=== PATIENT | male | born 1980 | race Caucasian/White ===

== ENCOUNTER 2018-01-12 11:45 | Observation (INO) | payer SELFPAY ==
[~2018-01-12] VITALS: Ht 175.3 cm; Wt 80.3 kg
[2018-01-12 12:21] LABS: HEMATOCRIT 42.9 % (42.0-52.0); HEMOGLOBIN 14.2 g/dl (13.5-18.0); MEAN CELL VOLUME 82 fl (80.0-100.0); MEAN CORPUSCULAR HEMOGLOBIN 27 pg (27.0-31.0); MEAN CORPUSCULAR HGB CONC 33 g/dl (33.0-37.0); MEAN PLATELET VOLUME 9.6 fl (7.4-10.4); PLATELET COUNT 323 K/mm3 (130-400); RED BLOOD COUNT 5.25 M/mm3 (4.20-5.60); REDCELL DISTRIBUTION WIDTH-CV 13.5 % (11.5-14.5)
[2018-01-12 12:33] LABS: BAND 13 % (0-10); EOSINOPHIL 1 % (0-4); LYMPHOCYTE 4 % (20.0-51.0); METAMYELOCYTE 1 % (0-0); NEUTROPHILS 79 % (42.0-75.2); PLATELET ESTIMATE NORMAL (NORMAL)
[2018-01-12 12:36] LABS: INR 1.1 (0.8-3.0); PROTHROMBIN TIME 12.8 SECONDS (9.7-12.8)
[2018-01-12 12:39] LABS: PARTIAL THROMBOPLASTIN TIME 31.8 SECONDS (26.0-37.0)
[2018-01-12 16:00] LABS: BILIRUBIN,TOTAL 0.5 mg/dL (0.0-1.0); CALCIUM 8.4 mg/dL (8.4-10.2); CREATININE, serum 0.78 mg/dL (0.66-1.25); POTASSIUM 3.8 mmol/L (3.4-5.0); TOTAL PROTEIN 7.1 gm/dL (6.4-8.2)
[2018-01-12 16:35] VITALS: BP 129/89; PULSE 101; TEMP 97.4
[2018-01-12 20:09] LABS: COLLECTION METHOD CLEAN CATCH
[2018-01-12 20:19] LABS: MUCOUS Present /lpf; PH 6 (5-8); SQUAMOUS EPITHELIAL None Seen /hpf; URINE APPEARANCE Clear; URINE BACTERIA None Seen /hpf; URINE BILIRUBIN Negative (NEGATIVE); URINE BLOOD Negative (NEGATIVE); URINE COLOR Yellow; URINE GLUCOSE Negative (NEGATIVE); URINE KETONE Negative (NEGATIVE); URINE LEUKOCYTE ESTERASE Negative (NEGATIVE); URINE NITRATE Negative (NEGATIVE); URINE PROTEIN(semi-quant) Negative (NEGATIVE); URINE RBC 0-2 /hpf; URINE UROBILINOGEN Negative (NEGATIVE)
[2018-01-12 20:26] LABS: TRICYCLIC ANTIDEPRESS URINE NEGATIVE
[2018-01-13] VITALS (7 sets, daily range): BP systolic 126–150; BP diastolic 80–98; PULSE 91–109; TEMP 97.8–98.6
[2018-01-13 07:19] LABS: HEMATOCRIT 38.2 % (42.0-52.0); HEMOGLOBIN 12.6 g/dl (13.5-18.0); MEAN CELL VOLUME 82 fl (80.0-100.0); MEAN CORPUSCULAR HEMOGLOBIN 27 pg (27.0-31.0); MEAN CORPUSCULAR HGB CONC 33 g/dl (33.0-37.0); MEAN PLATELET VOLUME 9.9 fl (7.4-10.4); PLATELET COUNT 288 K/mm3 (130-400); RED BLOOD COUNT 4.67 M/mm3 (4.20-5.60); REDCELL DISTRIBUTION WIDTH-CV 13.9 % (11.5-14.5)
[2018-01-13 07:34] LABS: CALCIUM 8.4 mg/dL (8.4-10.2); CREATININE, serum 0.86 mg/dL (0.66-1.25); MAGNESIUM 1.8 mg/dL (1.6-2.3); POTASSIUM 3.4 mmol/L (3.4-5.0)
[2018-01-13 08:00] LABS: BAND 3 % (0-10); HYPOCHROMIA 1+; LYMPHOCYTE 24 % (20.0-51.0); NEUTROPHILS 67 % (42.0-75.2); PLATELET ESTIMATE NORMAL (NORMAL)
[2018-01-14 00:44] VITALS: BP 126/44; PULSE 100; TEMP 98.4
[2018-01-14 04:51] VITALS: BP 149/99; PULSE 101; TEMP 98.2
[2018-01-14 07:46] LABS: BASO # 0.1 (0.0-0.2); BASO % 0.6 % (0.0-2.0); EOS # 0.5 (0.0-0.7); EOS % 3.2 % (0-4.0); GRAN # 9.7 (1.4-6.5); GRAN % 68.7 % (42.2-75.2); HEMATOCRIT 43.1 % (42.0-52.0); HEMOGLOBIN 14.2 g/dl (13.5-18.0); LYMPH # 2.6 (1.2-3.4); LYMPH % 18.5 % (20.0-51.0); MEAN CELL VOLUME 81 fl (80.0-100.0); MEAN CORPUSCULAR HEMOGLOBIN 27 pg (27.0-31.0); MEAN CORPUSCULAR HGB CONC 33 g/dl (33.0-37.0); MEAN PLATELET VOLUME 10.1 fl (7.4-10.4); MONO # 1.2 (0.1-0.6); MONO % 8.6 % (1.7-9.3); PLATELET COUNT 317 K/mm3 (130-400); REDCELL DISTRIBUTION WIDTH-CV 13.8 % (11.5-14.5)
[2018-01-14 07:57] LABS: CALCIUM 8.9 mg/dL (8.4-10.2); CREATININE, serum 0.94 mg/dL (0.66-1.25); MAGNESIUM 1.9 mg/dL (1.6-2.3); PHOSPHOROUS 3.8 mg/dL (2.5-4.5); POTASSIUM 3.6 mmol/L (3.4-5.0)
[2018-01-14 08:51] VITALS: BP 129/93; PULSE 86; TEMP 98.3
[2018-01-14 11:47] VITALS: BP 133/96; PULSE 106; TEMP 98
[2018-01-14 16:29] VITALS: BP 124/94; PULSE 92; TEMP 97.3
[2018-01-14] MEDS ORDERED: COREG12.5 MG PO (18:37)
[2018-01-14] MEDS ORDERED: ZESTRIL 5MG5 MG PO (18:38)
[2018-01-14] MEDS ORDERED: LASIX 40MG TABL40 MG PO (18:38)
[2018-01-14] MEDS ORDERED: ALDACTONE50 MG PO (18:38)
== END 2018-01-14 20:28 | disposition home or self-care (01) ==
LOC: COL.ER 11:45 → MEDICAL 13:57
PROVIDERS: Family Medicine; Internal Medicine; Nurse Practitioner Family
DX: I42.9 Cardiomyopathy, unspecified (principal); F32.9 Major depressive disorder, single episode, unspecified; I10 Essential (primary) hypertension; I08.1 Rheumatic disorders of both mitral and tricuspid valves; Z87.891 Personal history of nicotine dependence; Z87.442 Personal history of urinary calculi; Z83.3 Family history of diabetes mellitus; Z82.49 Family history of ischemic heart disease and other diseases of the circulatory system
CPT/HCPCS: 99222-AI; 99232-AI; 99239; J0456; J1650; J1940; J7030; J7040; J7050; Q9967

== ENCOUNTER 2018-05-08 10:38 | Emergency (ER) | payer SELFPAY ==
[~2018-05-08] VITALS: Ht 175.3 cm; Wt 80.1 kg
[~2018-05-08 10:38] MED LIST changes: -DOXYCYCLINE 10100 MG PO
[2018-05-08 10:40] VITALS: TEMP 98.4
[2018-05-08] MEDS ORDERED: DOXYCYCLINE 10100 MG PO (11:03)
[2018-05-08 11:46] VITALS: BP 135/115; PULSE 103
== END 2018-05-08 11:54 | disposition home or self-care (01) ==
LOC: COL.ER 10:38
DX: S90.562A Insect bite (nonvenomous), left ankle, initial encounter (principal); F32.9 Major depressive disorder, single episode, unspecified; I42.9 Cardiomyopathy, unspecified; F12.90 Cannabis use, unspecified, uncomplicated; Z90.89 Acquired absence of other organs; Z23 Encounter for immunization; W57.XXXA Bitten or stung by nonvenomous insect and other nonvenomous arthropods, initial encounter

== ENCOUNTER → 2018-05-08 | Outpatient (CLI) | payer OTHER ==
[~2018-05-08] MED LIST: ALDACTONE50 MG PO; COREG12.5 MG PO; DOXYCYCLINE 10100 MG PO; LASIX 40MG TABL40 MG PO; ZESTRIL 5MG5 MG PO
== END ==
LOC: COL.RAD 10:02
DX: Z02.71 Encounter for disability determination (principal)

== ENCOUNTER 2018-09-29 21:39 | Observation (INO) | payer SELFPAY ==
[~2018-09-29] VITALS: Ht 177.8 cm; Wt 80.0 kg
[~2018-09-29 21:39] MED LIST changes: +DOXYCYCLINE 10100 MG PO
[2018-09-29 22:05] LABS: BASO # 0.1 (0.0-0.2); BASO % 0.4 % (0.0-2.0); EOS # 0.1 (0.0-0.7); EOS % 0.9 % (0-4.0); GRAN # 11.5 (1.4-6.5); HEMATOCRIT 41.7 % (42.0-52.0); HEMOGLOBIN 13.8 g/dl (13.5-18.0); LYMPH # 2.3 (1.2-3.4); MEAN CELL VOLUME 84 fl (80.0-100.0); MEAN CORPUSCULAR HEMOGLOBIN 28 pg (27.0-31.0); MEAN CORPUSCULAR HGB CONC 33 g/dl (33.0-37.0); MONO # 1.4 (0.1-0.6); MONO % 9.3 % (1.7-9.3); PLATELET COUNT 292 K/mm3 (130-400); RED BLOOD COUNT 4.99 M/mm3 (4.20-5.60); REDCELL DISTRIBUTION WIDTH-CV 13.8 % (11.5-14.5)
[2018-09-29 22:15] LABS: ALANINE AMINOTRANSFERASE 36 U/L (21-72); ALBUMIN 3.9 gm/dL (3.5-5.0); ALKALINE PHOSPHATASE 66 U/L (50-136); ANION GAP 7 mmol/L (7-16); AST,SGOT 16 U/L (15-37); BILIRUBIN,TOTAL 0.5 mg/dL (0.0-1.0); BLOOD UREA NITROGEN 18 mg/dL (9-20); C-REACTIVE PROTEIN 3.1 mg/dL (0.0-0.9); CALCIUM 9.1 mg/dL (8.4-10.2); CARBON DIOXIDE 30 mmol/L (22-30); CHLORIDE 103 mmol/L (98-107); CREATININE, serum 1.08 mg/dL (0.66-1.25); GLUCOSE 108 mg/dL (74-106); POTASSIUM 3.4 mmol/L (3.4-5.0); SODIUM 140 mmol/L (137-145); TOTAL PROTEIN 6.8 gm/dL (6.4-8.2)
[2018-09-29 22:16] LABS: ALCOHOL(ethanol),MEDICAL < 10 mg/dL
[2018-09-29 22:25] LABS: TROPONIN-I 0.033 ng/mL (0.000-0.034)
[2018-09-30] VITALS (7 sets, daily range): BP systolic 96–142; BP diastolic 61–103; PULSE 98–113; TEMP 97.8–98.3
[2018-09-30 00:35] LABS: COLLECTION METHOD CLEAN CATCH
[2018-09-30 00:45] LABS: MUCOUS Present /lpf; PH 6 (5-8); SQUAMOUS EPITHELIAL None Seen /hpf; URINE APPEARANCE Clear; URINE BACTERIA None Seen /hpf; URINE BILIRUBIN Negative (NEGATIVE); URINE BLOOD Negative (NEGATIVE); URINE COLOR Yellow; URINE GLUCOSE Negative (NEGATIVE); URINE KETONE Negative (NEGATIVE); URINE LEUKOCYTE ESTERASE Negative (NEGATIVE); URINE NITRATE Negative (NEGATIVE); URINE PROTEIN(semi-quant) Negative (NEGATIVE); URINE RBC 0-2 /hpf; URINE UROBILINOGEN Negative (NEGATIVE)
[2018-09-30 00:50] LABS: TRICYCLIC ANTIDEPRESS URINE NEGATIVE
[2018-09-30 04:06] LABS: HEMATOCRIT 42.1 % (42.0-52.0); HEMOGLOBIN 14.1 g/dl (13.5-18.0); MEAN CELL VOLUME 82 fl (80.0-100.0); MEAN CORPUSCULAR HEMOGLOBIN 28 pg (27.0-31.0); MEAN CORPUSCULAR HGB CONC 34 g/dl (33.0-37.0); MEAN PLATELET VOLUME 9.9 fl (7.4-10.4); PLATELET COUNT 271 K/mm3 (130-400); RED BLOOD COUNT 5.12 M/mm3 (4.20-5.60); REDCELL DISTRIBUTION WIDTH-CV 13.7 % (11.5-14.5)
[2018-09-30 04:28] LABS: CALCIUM 8.7 mg/dL (8.4-10.2); CREATININE, serum 0.97 mg/dL (0.66-1.25); POTASSIUM 3.1 mmol/L (3.4-5.0)
[2018-09-30 04:39] LABS: TROPONIN-I 6 HR POST INITIAL 0.027 ng/mL (0.000-0.034)
[2018-09-30 04:52] LABS: BAND 2 % (0-10); EOSINOPHIL 1 % (0-4); LYMPHOCYTE 11 % (20.0-51.0); NEUTROPHILS 75 % (42.0-75.2)
[2018-09-30 04:53] LABS: PLATELET ESTIMATE NORMAL (NORMAL)
[2018-10-01 00:07] VITALS: BP 126/86; PULSE 105; PULSE 107; TEMP 98.3
[2018-10-01 04:25] VITALS: BP 137/92; PULSE 107; PULSE 110; TEMP 98.7
[2018-10-01 06:00] LABS: HEMATOCRIT 44.3 % (42.0-52.0); HEMOGLOBIN 14.7 g/dl (13.5-18.0); MEAN CELL VOLUME 83 fl (80.0-100.0); MEAN CORPUSCULAR HEMOGLOBIN 28 pg (27.0-31.0); MEAN CORPUSCULAR HGB CONC 33 g/dl (33.0-37.0); MEAN PLATELET VOLUME 10.1 fl (7.4-10.4); PLATELET COUNT 290 K/mm3 (130-400); RED BLOOD COUNT 5.35 M/mm3 (4.20-5.60); REDCELL DISTRIBUTION WIDTH-CV 13.7 % (11.5-14.5)
[2018-10-01 06:17] LABS: CALCIUM 9.2 mg/dL (8.4-10.2); CREATININE, serum 0.94 mg/dL (0.66-1.25)
[2018-10-01 07:04] LABS: BAND 1 % (0-10); LYMPHOCYTE 9 % (20.0-51.0); NEUTROPHILS 82 % (42.0-75.2); PLATELET ESTIMATE NORMAL (NORMAL)
[2018-10-01 08:38] VITALS: BP 126/89; PULSE 102; TEMP 97.9
[2018-10-01 11:24] VITALS: BP 102/76; PULSE 102; TEMP 99
[2018-10-01] MEDS ORDERED: ASPIRIN E.C. 8181 MG PO (13:39)
[2018-10-01] MEDS ORDERED: ALDACTONE50 MG PO (13:39)
[2018-10-01] MEDS ORDERED: ZESTRIL 5MG5 MG PO (13:39)
[2018-10-01] MEDS ORDERED: COREG12.5 MG PO (13:39)
[2018-10-01] MEDS ORDERED: LASIX 40MG TABL40 MG PO (13:39)
== END 2018-10-01 15:30 | disposition home or self-care (01) ==
LOC: COL.ER 21:39 → SURG 23:35
PROVIDERS: Emergency Medicine; Hospitalist; Internal Medicine; Nurse Practitioner
DX: R07.9 Chest pain, unspecified (principal); I50.9 Heart failure, unspecified; I42.9 Cardiomyopathy, unspecified; I30.1 Infective pericarditis; F11.10 Opioid abuse, uncomplicated; F12.10 Cannabis abuse, uncomplicated; F17.290 Nicotine dependence, other tobacco product, uncomplicated; I08.1 Rheumatic disorders of both mitral and tricuspid valves; Z82.49 Family history of ischemic heart disease and other diseases of the circulatory system; Z83.3 Family history of diabetes mellitus; Z82.3 Family history of stroke
CPT/HCPCS: G0378; J1940; J3480; Q9967

== ENCOUNTER 2019-03-04 17:57 | Inpatient (IN) | payer OTHER ==
[~2019-03-04] VITALS: Ht 177.8 cm; Wt 76.4 kg
[~2019-03-04 17:57] MED LIST changes: +ASPIRIN E.C. 8181 MG PO
[2019-03-04 18:47] LABS: BASO # 0.1 (0.0-0.2); BASO % 0.9 % (0.0-2.0); EOS # 0.1 (0.0-0.7); EOS % 0.6 % (0-4.0); GRAN # 8.9 (1.4-6.5); GRAN % 61.1 % (42.2-75.2); HEMATOCRIT 42.2 % (42.0-52.0); HEMOGLOBIN 13.8 g/dl (13.5-18.0); LYMPH # 3.8 (1.2-3.4); LYMPH % 26.1 % (20.0-51.0); MEAN CELL VOLUME 84 fl (80.0-100.0); MEAN CORPUSCULAR HEMOGLOBIN 28 pg (27.0-31.0); MEAN CORPUSCULAR HGB CONC 33 g/dl (33.0-37.0); MEAN PLATELET VOLUME 9.9 fl (7.4-10.4); MONO # 1.6 (0.1-0.6); MONO % 10.8 % (1.7-9.3); PLATELET COUNT 339 K/mm3 (130-400); RED BLOOD COUNT 5.02 M/mm3 (4.20-5.60); REDCELL DISTRIBUTION WIDTH-CV 14.5 % (11.5-14.5)
[2019-03-04 18:55] LABS: ALBUMIN 3.7 gm/dL (3.5-5.0); BILIRUBIN,TOTAL 1.7 mg/dL (0.0-1.0); CALCIUM 8.8 mg/dL (8.4-10.2); CREATININE, serum 1.07 (0.66-1.25); TOTAL PROTEIN 6.6 gm/dL (6.4-8.2)
[2019-03-04 19:07] LABS: TROPONIN-I 0.027 ng/mL (0.000-0.035)
[2019-03-04 23:08] LABS: COLLECTION METHOD CLEAN CATCH
--- NOTE | 2019-03-04 23:10 | NUR ---
Admitted to medical floor from ER with CHF exacerbation- Up in room, staedy on feet, denies SOB at this time, requesting some food- states feels better after the Lasix in ER, understands importance of measuring urine output-urinals in room
[2019-03-04 23:21] VITALS: BP 150/102; PULSE 76; TEMP 98.8
[2019-03-04 23:25] LABS: MUCOUS Present /lpf; PH 6 (5-8); SQUAMOUS EPITHELIAL 0-2 /hpf; URINE APPEARANCE Turbid; URINE BACTERIA Rare /hpf; URINE BILIRUBIN Negative (NEGATIVE); URINE BLOOD Negative (NEGATIVE); URINE COLOR Amber; URINE GLUCOSE Negative (NEGATIVE); URINE KETONE Negative (NEGATIVE); URINE LEUKOCYTE ESTERASE Negative (NEGATIVE); URINE NITRATE Negative (NEGATIVE); URINE PROTEIN(semi-quant) 2+ (NEGATIVE); URINE RBC 0-2 /hpf
[2019-03-05 04:42] VITALS: BP 141/101; PULSE 84; TEMP 98.3
--- NOTE | 2019-03-05 05:31 | NUR ---
Quiet night- Denies pain, voiding clear yellow urine, Tele on
--- NOTE | 2019-03-05 06:02 | NUR ---
pt did not use the urinal - states only went once during the night -- instructed again the need to use the urinal so we get accurate output
[2019-03-05 06:17] LABS: TRICYCLIC ANTIDEPRESS URINE NEGATIVE
[2019-03-05 07:16] LABS: CREATINE KINASE 111 U/L (55-170); MAGNESIUM 1.9 mg/dL (1.6-2.3); PHOSPHOROUS 3.9 mg/dL (2.5-4.5)
[2019-03-05 07:27] LABS: ALCOHOL(ethanol),MEDICAL < 10 mg/dL
[2019-03-05 08:34] VITALS: BP 148/108; PULSE 112; TEMP 98
[2019-03-05 11:15] VITALS: BP 117/92; PULSE 99; TEMP 97.3
--- NOTE | 2019-03-05 15:14 | NUR ---
SW met with the patient to discuss discharge plan. The patient was sleepy and difficult to arouse. The patient was able to inform SW that he lives alone in [place]. He states that his mother, children, and ex- lives in [place]. He states that his children live with his ex-. The patient states that he has utilized the walk-in clinic in [place] in the past and that he has difficulties affording his meds. Financial couselor, Lito, was consulted. Lito tried to meet with the patient to complete a Medicaid dontrell, but the patient was difficult to arouse. The patient did test positive for meth and marijuana. SW to follow up with the patient when he is more alert. SW to continue to follow.
[2019-03-05 15:36] VITALS: BP 137/95; PULSE 92; TEMP 97.2
[2019-03-05 20:03] VITALS: BP 110/78; PULSE 99; TEMP 98.8
--- NOTE | 2019-03-05 21:29 | NUR ---
Patient assessed around 2100. Reported having slight SOB. Oxygen 93% RA. Denies cough. LS CTA. Respirations even and unlabored. Requested PRN Ativan, and reports he is feeling a little anxious. Also stated that it made him very sleepy earlier and is having company soon. Asked if he would like to wait until his company leaves to take medication, and stated that he did. Encouraged to call and let this nurse know when he is ready for medication, and voiced understanding. Asked about CHF notebook, and stated he lost his. Given patient new CHF notebook as requested. Peripheral INT to left hand is patent, and without pain, redness, and swelling. Patient had shower at beginning of shift. Reminded patient that he needs to urinate in urinal so that we can monitor his output appropriately, and voiced understanding. Voices no other needs or concerns at this time. Call light is within reach. Sitting in recliner eatting and watching TV at this time. Also reminded of fluid restriction and voiced understanding.
--- NOTE | 2019-03-06 00:01 | NUR ---
Given new CHF book, as patient reports that he lost his that he was given on previous admission. Stated he didn't want to go through education tonight, but will tomorrow.
[2019-03-06 00:21] VITALS: BP 137/85; PULSE 78; TEMP 98.2
[2019-03-06 04:13] VITALS: BP 111/72; PULSE 70; TEMP 98.3
--- NOTE | 2019-03-06 05:45 | NUR ---
Patient has denied having pain and discomfort throughout the night. Was resting in bed with eyes closed most of the night. Never requested PRN Ativan, and was not given at all this shift. Patient reminded to use urinal, but states he did not use urinal each time he went to the bathroom. Patient reminded of fluid restriction, but is non-compliant, as another cup of fluids was found in his room that was not given to him by staff. Voices no other needs or concerns at this time. Resting in bed with eyes closed at this time. Call light is within reach.
[2019-03-06 07:15] LABS: BASO # 0.1 (0.0-0.2); BASO % 0.6 % (0.0-2.0); EOS # 0.1 (0.0-0.7); EOS % 0.8 % (0-4.0); GRAN # 11.4 (1.4-6.5); GRAN % 71.5 % (42.2-75.2); HEMATOCRIT 48.9 % (42.0-52.0); LYMPH # 2.9 (1.2-3.4); LYMPH % 18.3 % (20.0-51.0); MEAN CELL VOLUME 84 fl (80.0-100.0); MEAN CORPUSCULAR HEMOGLOBIN 27 pg (27.0-31.0); MEAN CORPUSCULAR HGB CONC 33 g/dl (33.0-37.0); MONO # 1.3 (0.1-0.6); MONO % 8.2 % (1.7-9.3); PLATELET COUNT 339 K/mm3 (130-400); RED BLOOD COUNT 5.83 M/mm3 (4.20-5.60); REDCELL DISTRIBUTION WIDTH-CV 14.6 % (11.5-14.5)
[2019-03-06 07:28] VITALS: BP 126/98; PULSE 92; TEMP 96.9
[2019-03-06 07:29] LABS: CALCIUM 8.9 mg/dL (8.4-10.2); CHOLESTEROL RISK RATIO 6.2; CREATININE, serum 1.09 (0.66-1.25); POTASSIUM 3.3 mmol/L (3.4-5.0)
--- NOTE | 2019-03-06 08:07 | NUR ---
Assessment completed, alert/oriented, vital signs stable/ BP and HR both improved after restarting him on medications, denies any chest pain or discomfort, at times reports some SOA/ anxiety, lungs CTA/ no resp.dfficulty noted at rest, heart RRR/ borederline tachycardic but again is improved from admission, distal pulses are palpable, patient has been instructed multiple times on using urinal so we can measure and to limit fluid intake to 1000 mL/day / He still does not always use the urinal and says " he couldnt make it in time" , he also has visitors bring him large fountain drinks and does not follow his fluid restriction despite repeated education on the matter
[2019-03-06 11:16] VITALS: BP 111/86; PULSE 90; TEMP 97.6
--- NOTE | 2019-03-06 15:30 | NUR ---
Pt out to car per wheelchair. Denies pain. Pt up and into car without assistance.
--- NOTE | 2019-03-06 16:07 | NUR ---
KATY followed up with the patient to discuss discharge plan. The patient reports that he does live alone in [place]. He states that he was set up to go to the [facility] in [facility] in the past, but was unable to go, due to not having a ride. KATY discussed the medical clinic, [facility] in [place]. The patient reports that he went there in the past and did not like them. He states he would prefer to be set up at the [facility] in [place] again. He states that his mother does not have to work Fridays and that an appointment on that day would work best, so that she could then provide transportation for him. KATY contacted the [facility] and set up an appointment for Monday, 03/15, at 1200. KATY informed the varnishing unit tool setter of appointment. KATY will need to fax the patient's records and discharge orders to [facility]: [phone]. KATY then discussed the patient's drug use. The patient reports that he plans to quit meth and was not interested in any outpatient or inpatient treatment. He states that he continues to smoke marijuana. SW to continue to follow.
[2019-03-06 16:39] VITALS: BP 108/83; PULSE 88; TEMP 97.7
--- NOTE | 2019-03-06 19:27 | NUR ---
Patient assessed at this time. Denies having pain and discomfort. Continues to be noncompliant with fluid restriction, MD is aware. Also not compliant with using urinal to accurately document urine output, MD aware. Patient was eatting. Voiced no questsions or concerns about WIN scheduled for tomorrow. Reminded that he can not eat or drink anything after midnight. Voiced understanding, and stated that was why he was eatting so much at this time. LS CTA. HRR. BSAx4. No edema noted. Denies having SOB and dyspnea. Peripheral INT to left hand flushed per orders. Patent, and site is without redness, warmth, swelling, and pain. Voices no needs or concerns at this time. Call light is within reach.
[2019-03-06 19:58] VITALS: BP 104/85; PULSE 94; TEMP 98.5
[2019-03-07 00:08] VITALS: BP 116/93; PULSE 78; TEMP 98.3
--- NOTE | 2019-03-07 01:54 | NUR ---
Around 2330, this nurse went into patient's room and reminded patient that he is NPO after midnight. This nurse emptied all of his drinks and threw them away. Patient voiced understanding. Voiced no questions or concerns regarding WIN scheduled for today. Voices no needs or concerns. Resting in bed with eyes closed at this time. Call light is within reach.
[2019-03-07 04:00] VITALS: BP 110/82; PULSE 76; TEMP 98
--- NOTE | 2019-03-07 06:05 | NUR ---
Patient states that he has not had anything to eat or drink since midnight. Continues to be non-compliant with using urinal to monitor urine output. Consent for WIN this morning obtained from patient. Express called and stated that patient needs to be taken down via wheelchair at 0730. LR started via dialflow at 50 ml/hr to peripheral IV site to left hand. Patient voiced no needs or concerns regarding WIN. Resting in bed with eyes closed at this time. Call light is within reach.
[2019-03-07 06:30] LABS: HEMOGLOBIN 16.3 g/dl (13.5-18.0); MEAN CELL VOLUME 84 fl (80.0-100.0); MEAN CORPUSCULAR HEMOGLOBIN 27 pg (27.0-31.0); MEAN CORPUSCULAR HGB CONC 33 g/dl (33.0-37.0); MEAN PLATELET VOLUME 9.8 fl (7.4-10.4); PLATELET COUNT 376 K/mm3 (130-400); RED BLOOD COUNT 5.97 M/mm3 (4.20-5.60); REDCELL DISTRIBUTION WIDTH-CV 14.7 % (11.5-14.5)
[2019-03-07 06:44] LABS: CALCIUM 9.2 mg/dL (8.4-10.2); CREATININE, serum 1.1 (0.66-1.25); POTASSIUM 3.6 mmol/L (3.4-5.0)
[2019-03-07 07:22] LABS: EOSINOPHIL 1 % (0-4); LYMPHOCYTE 26 % (20.0-51.0); MYELOCYTE 3 % (0-0); NEUTROPHILS 62 % (42.0-75.2); PLATELET ESTIMATE NORMAL (NORMAL); POLYCHROMASIA 1+
[2019-03-07 07:23] LABS: ANISOCYTOSIS 1+
--- NOTE | 2019-03-07 07:30 | NUR ---
Gone to WIN at this time, consent on the chart. No pain or needs at this time. Will await return.
--- NOTE | 2019-03-07 11:36 | NUR ---
First visit from the team psychologist. No needs right now.
[2019-03-07 12:21] VITALS: BP 89/62; PULSE 92; TEMP 97.6
--- NOTE | 2019-03-07 15:20 | NUR ---
This patient has refused following the fluids restriction today. 480 ml at breakfast and now is requesting 600 for a late lunch. The patient also reports he is forgetting to use the urinal. Education provided on fluids and I&O. The patient also reported some nausea that has resolved. There is a new order for zofran PRN.
[2019-03-07 16:10] VITALS: BP 92/67; PULSE 80; TEMP 97.7
--- NOTE | 2019-03-07 18:47 | NUR ---
Patient requesting jello. This nurse reminded the patient he was over on his fluid intake. The patient voiced he understood, but still wanted the jello. No other needs at this time. Report given to LILLIANA Huang to resume care.
[2019-03-07 19:25] VITALS: BP 98/82; PULSE 89; TEMP 97.6
--- NOTE | 2019-03-07 22:59 | NUR ---
Patent assesse around 1930. Denied having pain and discomfort. Daughter was in visiting earlier, and patient seemed happy, stating his daughter may be moving back in with him. Denies having SOB and dypsnea. LS CTA. Respirations even and unlabored. HRR. BSAx4. Peripheral INT to left hand flushed. Site patent, and without redness, warmth, swelling, and pain. No edema noted. Patient continues to not follow fluid restriction, or use urinal to monitor output. Physicians are aware. Voices no needs or concerns. Continues to have CHF notebook given to him. Denies having any questsions or concerns regarding CHF. Resting in bed with eyes closed at this time. Call light is within reach.
[2019-03-08 00:03] VITALS: BP 113/79; PULSE 96; TEMP 98.2
[2019-03-08 04:48] VITALS: BP 111/89; PULSE 90; TEMP 97.6
--- NOTE | 2019-03-08 06:32 | NUR ---
Patient has denied having pain and discomfort throughout this shift. Has voiced no needs or concerns. Reminded of fluid restriction multiple times, but non-compliant. Went over CHF notebook again, and voiced understanding. Resting in bed with eyes closed at this time. Call light is within reach.
[2019-03-08 06:52] LABS: MEAN CELL VOLUME 84 fl (80.0-100.0); MEAN CORPUSCULAR HEMOGLOBIN 27 pg (27.0-31.0); MEAN CORPUSCULAR HGB CONC 32 g/dl (33.0-37.0); MEAN PLATELET VOLUME 9.7 fl (7.4-10.4); PLATELET COUNT 404 K/mm3 (130-400); REDCELL DISTRIBUTION WIDTH-CV 14.6 % (11.5-14.5)
[2019-03-08 06:53] LABS: HEMATOCRIT 52.8 % (42.0-52.0)
[2019-03-08 07:06] LABS: ALBUMIN 3.8 gm/dL (3.5-5.0); BILIRUBIN,TOTAL 0.9 mg/dL (0.0-1.0); CALCIUM 9.1 mg/dL (8.4-10.2); CREATININE, serum 1.11 (0.66-1.25); POTASSIUM 4.3 mmol/L (3.4-5.0); TOTAL PROTEIN 6.9 gm/dL (6.4-8.2)
[2019-03-08 07:08] LABS: LYMPHOCYTE 14 % (20.0-51.0); NEUTROPHILS 79 % (42.0-75.2); PLATELET ESTIMATE INCREASED (NORMAL); POLYCHROMASIA 1+
[2019-03-08 07:23] LABS: BILIRUBIN UNCONJUGATED 0.7 mg/dL (0.0-1.1); BILIRUBIN,DIRECT 0.2 mg/dL (0.0-0.4)
[2019-03-08 08:20] VITALS: BP 105/84; PULSE 90; TEMP 97.4
--- NOTE | 2019-03-08 10:32 | NUR ---
No change throughout the night. Plan for a chest xray and UA this morning. No pain or needs reported. The call light is in place.
[2019-03-08 12:25] VITALS: BP 99/72; PULSE 93; TEMP 98.2
[2019-03-08 14:31] LABS: COLLECTION METHOD CLEAN CATCH
[2019-03-08 15:10] LABS: PH 7 (5-8); SQUAMOUS EPITHELIAL None Seen /hpf; URINE APPEARANCE Clear; URINE BACTERIA None Seen /hpf; URINE BILIRUBIN Negative (NEGATIVE); URINE BLOOD Negative (NEGATIVE); URINE COLOR Yellow; URINE GLUCOSE Negative (NEGATIVE); URINE KETONE Negative (NEGATIVE); URINE LEUKOCYTE ESTERASE Negative (NEGATIVE); URINE NITRATE Negative (NEGATIVE); URINE PROTEIN(semi-quant) Negative (NEGATIVE); URINE RBC 0-2 /hpf; URINE UROBILINOGEN Negative (NEGATIVE)
[2019-03-08] MEDS ORDERED: AMOXICILLIN 8751 TAB PO (15:24)
[2019-03-08] MEDS ORDERED: ALDACTONE50 MG PO (15:25)
[2019-03-08] MEDS ORDERED: PRINIVIL20 MG PO (15:25)
[2019-03-08] MEDS ORDERED: COREG 25MG25 MG/TAB PO (15:25)
[2019-03-08] MEDS ORDERED: LASIX 40MG TABL40 MG PO (15:25)
[2019-03-08] MEDS ORDERED: K-TAB20 PO (15:28)
[2019-03-08] MEDS ORDERED: LIPITOR20 MG PO (15:41)
--- NOTE | 2019-03-08 16:33 | NUR ---
The patient is to discharge back home today, 03/08. KATY faxed the patient's records and discharge orders to [facility] in [place]. The patient was in need of medication assistance. KATY provided the patient with a med voucher to [facility] for $76.43. KATY educated the patient on the importance of following up at his appointment at [facility] on 03/15. The patient verbalized understanding. No additional needs at this time.
--- NOTE | 2019-03-08 17:18 | NUR ---
Discharge education completed with the patient and his girlfriend. No questions at this time. INT removed per this nurse without complication. Escorted out per staff.
== END 2019-03-08 17:20 | disposition home or self-care (01) | DRG 292 ==
LOC: COL.ER 17:57 → MEDICAL 21:15
PROVIDERS: Emergency Medicine; Nurse Practitioner Family; Physician Assistant; ADMIT Internal Medicine
DX: I50.23 Acute on chronic systolic (congestive) heart failure (principal); I42.9 Cardiomyopathy, unspecified; D72.829 Elevated white blood cell count, unspecified; F15.10 Other stimulant abuse, uncomplicated; I27.20 Pulmonary hypertension, unspecified; F41.9 Anxiety disorder, unspecified; I08.1 Rheumatic disorders of both mitral and tricuspid valves; E78.5 Hyperlipidemia, unspecified; F32.9 Major depressive disorder, single episode, unspecified; E87.6 Hypokalemia; F41.0 Panic disorder [episodic paroxysmal anxiety]; K02.9 Dental caries, unspecified; K04.7 Periapical abscess without sinus; Z87.891 Personal history of nicotine dependence; Z91.14 Patient's other noncompliance with medication regimen
CPT/HCPCS: 99222-AI; 99232-AI; 99233-AI; 99239; J1644; J1940; J2060; J2250; J2405; J2704; J7120; Q9967

== ENCOUNTER → 2019-04-23 | Outpatient (CLI) | payer OTHER ==
[~2019-04-23] VITALS: Ht 177.8 cm; Wt 76.3 kg
[~2019-04-23] MED LIST changes: +AMOXICILLIN 8751 TAB PO; +COREG 25MG25 MG/TAB PO; +K-TAB20 PO; +LIPITOR20 MG PO; +PRINIVIL20 MG PO
[2019-04-23 06:42] VITALS: BP 129/83; PULSE 70
[2019-04-23 07:12] VITALS: BP 127/76; PULSE 67
[2019-04-23 07:45] VITALS: BP 147/82; PULSE 108
[2019-04-23 07:50] VITALS: BP 143/74; BP 147/82; PULSE 105; PULSE 108
[2019-04-23 07:51] VITALS: BP 143/74; PULSE 105
[2019-04-23 07:53] VITALS: BP 146/79; PULSE 87
== END ==
LOC: COL.CARD 06:27
DX: I50.22 Chronic systolic (congestive) heart failure (principal)
CPT/HCPCS: A9500

== ENCOUNTER 2021-02-01 07:34 | Observation (INO) | payer OTHER ==
[~2021-02-01] VITALS: Ht 177.8 cm; Wt 90.5 kg
[2021-02-01 08:36] LABS: BASO # 0.1 (0.0-0.2); BASO % 0.4 % (0.0-2.0); EOS # 0.1 (0.0-0.7); GRAN # 10.4 (1.4-6.5); GRAN % 75.7 % (42.2-75.2); LYMPH # 1.7 (1.2-3.4); LYMPH % 12.7 % (20.0-51.0); MEAN CELL VOLUME 85 fl (80.0-100.0); MEAN CORPUSCULAR HEMOGLOBIN 28 pg (27.0-31.0); MEAN CORPUSCULAR HGB CONC 33 g/dl (33.0-37.0); MEAN PLATELET VOLUME 10.6 fl (7.4-10.4); MONO # 1.3 (0.1-0.6); MONO % 9.8 % (1.7-9.3); PLATELET COUNT 232 K/mm3 (130-400); RED BLOOD COUNT 5.31 M/mm3 (4.20-5.60); REDCELL DISTRIBUTION WIDTH-CV 13.9 % (11.5-14.5)
[2021-02-01 08:45] LABS: ALANINE AMINOTRANSFERASE 22 U/L (4-49); ALBUMIN 4.5 gm/dL (3.5-5.0); ALKALINE PHOSPHATASE 78 U/L (50-136); ANION GAP 9 mmol/L (7-16); AST,SGOT 21 U/L (15-37); BILIRUBIN,TOTAL 0.7 mg/dL (0.0-1.0); BLOOD UREA NITROGEN 17 mg/dL (9-20); CALCIUM 9.2 mg/dL (8.4-10.2); CARBON DIOXIDE 27 mmol/L (22-30); CHLORIDE 106 mmol/L (98-107); CREATININE, serum 0.94 (0.66-1.25); GLUCOSE 97 mg/dL (74-106); POTASSIUM 3.9 mmol/L (3.4-5.0); SODIUM 142 mmol/L (137-145)
[2021-02-01 08:58] LABS: TROPONIN-I < 0.012 ng/mL (0.000-0.035)
--- NOTE | 2021-02-01 12:11 | NUR ---
Dr. Morel in to see patient.
[2021-02-01] MEDS ORDERED: ASPIRIN 81M81 MG/TA2 PO (12:17)
--- NOTE | 2021-02-01 12:20 | NUR ---
Patient oriented to room, assessment complete. Alert and oriented x 3. On 2 L oxygen via NC. Denies pain or further needs at this time. Patient states he has not taken any home medications for a couple of months but follows with cardiology out patient and was to restart all medications this week.
[2021-02-01] MEDS ORDERED: COZAAR 50MG50 MG/TAB PO (12:36)
[2021-02-01] MEDS ORDERED: HCTZ 25MG TAB25 MG PO (12:37)
[2021-02-01] MEDS ORDERED: NORVASC2.5 MG PO (12:37)
[2021-02-01 12:39] VITALS: BP 166/99; PULSE 83; TEMP 98.3
--- NOTE | 2021-02-01 14:00 | NUR ---
Patient up to restroom without O2, O2 saturations to 90%. Placed patient on 1L oxygen via NC.
--- NOTE | 2021-02-01 14:12 | NUR ---
Report to Charmaine burton
--- NOTE | 2021-02-01 15:28 | NUR ---
Report recieved from LILLIANA Williamson. Patient is resting in bed at this time. Brother at bedside. Patient of 1 L of O2 via nasal cannula. Patient denies any pain, discomfort, or needs at this time. Will continue to monitor. Call light within reach.
[2021-02-01 15:55] VITALS: BP 157/90; PULSE 87; TEMP 98.8
[2021-02-01 17:00] VITALS: PULSE 102
[2021-02-01] MEDS ORDERED: VENTOLIN0.09 MG IH (17:02)
[2021-02-01] MEDS ORDERED: MEDROL 4MG DOSPA4 MG PO (17:02)
--- NOTE | 2021-02-01 17:04 | NUR ---
Encountered patient in the hallway. Wanted to see his mother, who is also a patient here at the hospital. Patient stated he wanted to go home "im feeling much better now" and "I feel like im in a penitentiary" Made Dr. Morel aware of his request. Per Dr. Morel, check 02 sats and if OK will discharge patient home. 02 sats checked by PCT. 02 sats 93% on RA with activity in Hallway. Dr. Morel made aware; states that he will put in discharge orders. This information relayed to patients nurse.
--- NOTE | 2021-02-01 18:43 | NUR ---
Dr. Morel put discharge orders in. Patient very anxious to get home. States that he is feeling much better. Scheduled meds given. Patient denies any pain or discomfort. IV DC'd catheter intact. No signs of phlebitis noted. Discharge education given. Patient verbalizes an understanding of the teaching. Denies any further needs or concerns. Vital Signs stable. Escorted out of the building by [facility] Staff.
== END 2021-02-01 17:30 | disposition home or self-care (01) ==
LOC: COL.ER 07:34 → MEDICAL 10:26
PROVIDERS: Emergency Medicine; ADMIT Internal Medicine
DX: J18.8 Other pneumonia, unspecified organism (principal); J96.01 Acute respiratory failure with hypoxia; I11.0 Hypertensive heart disease with heart failure; I50.20 Unspecified systolic (congestive) heart failure; Z20.822 Contact with and (suspected) exposure to COVID-19; Z79.82 Long term (current) use of aspirin; Z79.899 Other long term (current) drug therapy; Z87.891 Personal history of nicotine dependence; Z91.14 Patient's other noncompliance with medication regimen
CPT/HCPCS: G0378; J1650; J2930; J7512

== ENCOUNTER → 2023-08-21 | Outpatient (CLI) | payer OTHER ==
[~2023-08-21] MED LIST changes: +ALDACTONE 25MG25 M1 PO; +ASPIRIN 81M81 MG/TA2 PO; +COZAAR 25MG25 MG/TAB PO; +HCTZ 25MG TAB25 MG PO; +MEDROL 4MG DOSPA4 MG PO; +NORVASC2.5 MG PO; +TOPROL XL 25MG25 MG PO; +VENTOLIN0.09 MG IH; +ZITHROMAX Z PA250 MG PO
== END ==
LOC: COL.VAS 09:53
DX: I51.7 Cardiomegaly (principal); I34.0 Nonrheumatic mitral (valve) insufficiency; I36.1 Nonrheumatic tricuspid (valve) insufficiency

== ENCOUNTER 2023-10-25 12:24 | Inpatient (IN) | payer OTHER ==
[~2023-10-25] VITALS: Ht 177.8 cm; Wt 86.5 kg
[2023-10-25] VITALS (8 sets, daily range): BP systolic 132–170; BP diastolic 71–110; PULSE 60–118; TEMP 97.1–98.2
[~2023-10-25 12:24] MED LIST changes: -COZAAR 25MG25 MG/TAB PO; +COZAAR100 MG PO
--- NOTE | 2023-10-25 15:15 | NUR ---
Pt arrived to medical floor from EMS transport from [facility]. Telephone received from LILLIANA Hopkins at [facility]. Admission assessment completed. Oriented pt to room, call light, and bathroom. Pt is alert and oriented x4. Home medications reviewed with pt. INT to Lt AC patent with no redness, swelling or drainage. Call light within reach.
[2023-10-25] MEDS ORDERED: TOPROL XL 25MG25 MG PO (15:45)
--- NOTE | 2023-10-25 16:25 | NUR ---
Agree with EDMUND Mosquera assessment of the patient. Patient A&O, walking in the room. No further needs expressed. Call light within reach
--- NOTE | 2023-10-25 18:30 | NUR ---
OCTAVIA Mcintyre notified of critcal troponin.
--- NOTE | 2023-10-25 21:17 | NUR ---
Hospitalist DESMOND Pak contacted for BP of of 140/105. New orders for hydralazine and she will go in and see patient.
--- NOTE | 2023-10-25 21:30 | NUR ---
Margat sitting in chair and visibly anxious. States he has some lower right quadrant pain rating it at 6/10 with pressue but little to none at rest. States he wants something to eat, snack given. Assessment complete. IV in right AC flushes easily with no complicaitons. Call light and personal items in reach. Bed in low position.
[2023-10-26] VITALS (12 sets, daily range): BP systolic 117–157; BP diastolic 79–92; PULSE 47–116; TEMP 97.2–98.3
--- NOTE | 2023-10-26 05:30 | NUR ---
Patient resting in bed with eyes closed. Respirations even and unlabored. No signs of pain or needs at this time. Call light and personal items in reach. Bed in low position.
[2023-10-26 06:59] LABS: HEMATOCRIT 46.3 % (42.0-52.0); HEMOGLOBIN 15.4 g/dl (13.5-18.0); MEAN CELL VOLUME 81 fl (80.0-100.0); MEAN CORPUSCULAR HEMOGLOBIN 27 pg (27-31); MEAN CORPUSCULAR HGB CONC 33 g/dl (33.0-37.0); MEAN PLATELET VOLUME 9.8 fl (7.4-10.4); PLATELET COUNT 313 K/mm3 (130-400); RED BLOOD COUNT 5.71 M/mm3 (4.20-5.60); REDCELL DISTRIBUTION WIDTH-CV 15.1 % (11.5-14.5)
[2023-10-26 07:19] LABS: ALBUMIN 3.6 gm/dL (3.5-5.0); BILIRUBIN,TOTAL 2.4 mg/dL (0.2-1.2); CALCIUM 9.3 mg/dL (8.4-10.2); CREATININE, serum 1.09 mg/dL (0.72-1.25); POTASSIUM 3.5 mmol/L (3.5-4.5); TOTAL PROTEIN 6.4 gm/dL (6.2-8.1)
[2023-10-26 07:31] LABS: BASOPHIL 1 % (0-2); LYMPHOCYTE 29 % (20.0-51.0); NEUTROPHILS 59 % (42.0-75.2); PLATELET ESTIMATE NORMAL (NORMAL)
[2023-10-26 07:32] LABS: ANISOCYTOSIS 1+
[2023-10-26 07:33] LABS: TROPONIN-I 0.081 ng/mL (0.00-0.033)
[2023-10-26 10:46] LABS: HIV 1/2 Antibodies Non-Reactive; HIV-1p24 Antigen Non-Reactive
--- NOTE | 2023-10-26 15:27 | NUR ---
PATIENT WAS INSTRUCTED EARLIER AFTER CARDIOLOGY SEEN HIM THAT HE WAS ON A FLUID RESTRICTION AND WE HAD TO KEEP TRACK OF THE FLUIDS TAKING IN AND OUT. HE WAS INSTRUCTED TO PEE ON THE URINAL OR THE HAT IN THE TOILET. WE HAVE NOT BEING ABLE TO TRACK WHAT IS COMING OUT ACCUARTELY DUE TO PATIENT FLUSHING THE PEE AND NOT BEING COMPLIANT WITH LEAVING THE OUTPUT SO WE CAN RECORD IT.
--- NOTE | 2023-10-26 16:59 | NUR ---
clay worker attempted to meet with patient on several occasions but staff were working with him each time. SW will follow up with patient tomorrow to discuss discharge planning.
--- NOTE | 2023-10-26 21:00 | NUR ---
Patient resting in bed. Denies any pain or needs. Assessment complete. Patient refused lovenox dose this evening. IV in left AC flushes easily with no complications. Call light and personal items in reach. Bed in low position.
[2023-10-27] VITALS (7 sets, daily range): BP systolic 113–127; BP diastolic 75–87; PULSE 97–102; TEMP 97.1–97.5
--- NOTE | 2023-10-27 06:15 | NUR ---
Patient resting in bed with eyes closed. Respirtations even and unlabored. No signs of pain at this time. Patient was plesant over night and did not have any anxious episodes. Call light and personal items in reach. Bed in low position.
[2023-10-27 06:55] LABS: HEMATOCRIT 49.9 % (42.0-52.0); HEMOGLOBIN 16.3 g/dl (13.5-18.0); MEAN CELL VOLUME 82 fl (80.0-100.0); MEAN CORPUSCULAR HEMOGLOBIN 27 pg (27-31); MEAN CORPUSCULAR HGB CONC 33 g/dl (33.0-37.0); MEAN PLATELET VOLUME 10.2 fl (7.4-10.4); PLATELET COUNT 320 K/mm3 (130-400); RED BLOOD COUNT 6.12 M/mm3 (4.20-5.60); REDCELL DISTRIBUTION WIDTH-CV 16.1 % (11.5-14.5)
[2023-10-27 07:22] LABS: ALBUMIN 3.5 gm/dL (3.5-5.0); BILIRUBIN,TOTAL 1.8 mg/dL (0.2-1.2); CALCIUM 9.1 mg/dL (8.4-10.2); CREATININE, serum 1.18 mg/dL (0.72-1.25); POTASSIUM 3.5 mmol/L (3.5-4.5); TOTAL PROTEIN 6.6 gm/dL (6.2-8.1)
[2023-10-27 07:30] LABS: ANISOCYTOSIS 1+; LYMPHOCYTE 13 % (20.0-51.0); NEUTROPHILS 78 % (42.0-75.2); PLATELET ESTIMATE NORMAL (NORMAL)
[2023-10-27 07:31] LABS: HYPOCHROMIA 1+
--- NOTE | 2023-10-27 08:30 | NUR ---
PT DOING WELL THIS MORNING, UP TAKING A SHOWER AFTER REPORT. PT INDEPENDENT IN THE ROOM. CONTINUES ON TELE RUNNING SINUS RYTHM. NO COMPLAINTS OF CHEST PAIN OR DISCOMFORT. PT ANXIOUS TO GET HOME.
--- NOTE | 2023-10-27 09:49 | NUR ---
Initial visit; Patient thanked Cartography/Mapping Technician for looking in on him and offering Spiritual Care. Kenyon stated that he would like prayer that he has had an unusual stressful past few months. He said his 'Congestive Heart Failure' is acting up, that he's having trouble breathing, he has begun a new job and his left him. Though the situation seems overwhelming for any person, Cartography/Mapping Technician suggested several coping skills beginning with prayer, repeat positive 'self-talk' and someone to talk with. He thanked Cartography/Mapping Technician and said he felt better. Cartography/Mapping Technician will be available to listen and help Kenyon. Cartography/Mapping Technician will keep him in her prayers.
[2023-10-27] MEDS ORDERED: COZAAR 25MG25 MG/TAB PO (09:51)
[2023-10-27] MEDS ORDERED: ASPIRIN E.C. 8181 MG PO (09:52)
[2023-10-27] MEDS ORDERED: LASIX 20MG TABL20 MG PO (09:53)
--- NOTE | 2023-10-27 12:41 | NUR ---
airplane woodworker met with patient to discuss discharge planning. Patient confirmed he lives in [place]. Patient has two daughters, Neela, P# [phone] and Craig P# [phone]. Patient reports he has a son, named Jf but he is only 13 years old. Patient reports he does not have a PCP at this time but is interested in obtaining one in [place]. Pharmacy is [facility]. patient reports he does not currently have any issues with affording medications. Patient does not currently have a DPOA-HC but would like to complete one in the hospital. Does not use any DME and is independent with ADLS. Patient has a form of transportation to get to and from appointments. SW returned to meet with the patient and presented PCP providers in the [place] area. Patient would like [facility] in [place] but was open to others that would be able to accept him. SW assisted patient with completing the DPOA-HC form, patient appointed his daughter Neela as the primary and did not appoint a secondary at this time. KATY and KATY student, Tati, witnessed patient's signature. KATY made several copies, placed a copy in the chart, provided additional copies and original to patient. KATY notified corrections unit supervisorKristyn, patient was wanting a PCP in the [place] area preferrably [facility] but he was open to others. [facility] is not able to accept due to insurance but Kristyn was able to schedule him at the [facility] for 11/03/23. Discharge Plan: Home
--- NOTE | 2023-10-27 12:46 | NUR ---
ALL DISCHARGE INSTRUCTIONS REVIEWED WITH PT. CHF DISCHARGE PACKET REVIEWED WITH PT. ALL QUESTIONS ANSWERED AT THAT TIME. IV SITE TO LEFT AC DISCONTINUED, CATHETER TIP INTACT. TELEMETRY BOX DISCONNECTED FROM PT. PT ESCORTED OUT BY PCT, ALL PERSONAL BELONGINGS TAKEN WITH PT.
== END 2023-10-27 12:48 | disposition home or self-care (01) | DRG 291 ==
LOC: MEDICAL 15:21
PROVIDERS: Physician Assistant; ADMIT Internal Medicine
DX: I11.0 Hypertensive heart disease with heart failure (principal); I50.23 Acute on chronic systolic (congestive) heart failure; I24.89 Other forms of acute ischemic heart disease; D72.829 Elevated white blood cell count, unspecified; E87.5 Hyperkalemia; R00.0 Tachycardia, unspecified; F32.A Depression, unspecified; F41.9 Anxiety disorder, unspecified; E78.5 Hyperlipidemia, unspecified; I10 Essential (primary) hypertension
CPT/HCPCS: J0360; J1650; J1940

== ENCOUNTER 2023-11-19 16:52 | Emergency (ER) | payer OTHER ==
[~2023-11-19] VITALS: Ht 175.3 cm; Wt 81.8 kg
[~2023-11-19 16:52] MED LIST changes: +COZAAR 25MG25 MG/TAB PO; +LASIX 20MG TABL20 MG PO
[2023-11-19 17:03] VITALS: TEMP 98.3
[2023-11-19 17:45] LABS: BASO # 0.1 K/mm3 (0.0-0.2); BASO % 0.5 % (0.0-2.0); EOS # 0.1 K/mm3 (0.0-0.7); EOS % 0.4 % (0.0-4.0); GRAN # 8.6 K/mm3 (1.4-6.5); GRAN % 64.9 % (42.2-75.2); HEMATOCRIT 44.1 % (42.0-52.0); HEMOGLOBIN 14.7 g/dl (13.5-18.0); LYMPH # 3.1 K/mm3 (1.2-3.4); LYMPH % 23.6 % (20.0-51.0); MEAN CELL VOLUME 81 fl (80.0-100.0); MEAN CORPUSCULAR HEMOGLOBIN 27 pg (27-31); MEAN CORPUSCULAR HGB CONC 33 g/dl (33.0-37.0); MEAN PLATELET VOLUME 9.9 fl (7.4-10.4); MONO # 1.4 K/mm3 (0.1-0.6); MONO % 10.2 % (1.7-9.3); PLATELET COUNT 268 K/mm3 (130-400); RED BLOOD COUNT 5.45 M/mm3 (4.20-5.60); REDCELL DISTRIBUTION WIDTH-CV 15.1 % (11.5-14.5)
[2023-11-19] MEDS ORDERED: Mag/Al Hydrox/Simeth Susp 30 ML CUP PO ONE (17:45)
[2023-11-19 17:58] LABS: COLLECTION METHOD CLEAN CATCH
[2023-11-19 18:07] LABS: ALBUMIN 3.9 gm/dL (3.5-5.0); BILIRUBIN,TOTAL 1.2 mg/dL (0.2-1.2); CALCIUM 8.9 mg/dL (8.4-10.2); CREATININE, serum 1.18 mg/dL (0.72-1.25); POTASSIUM 3.9 mmol/L (3.5-4.5); TOTAL PROTEIN 6.7 gm/dL (6.2-8.1)
[2023-11-19 18:11] LABS: TRICYCLIC ANTIDEPRESS URINE NEGATIVE (NEGATIVE)
[2023-11-19 18:14] LABS: PH 5.5 (5.0-8.5); SQUAMOUS EPITHELIAL 0-2 /hpf (0-10); URINE APPEARANCE Clear (CLEAR/HAZY); URINE BLOOD Negative (NEGATIVE); URINE COLOR Yellow (YELLOW); URINE GLUCOSE Negative (NEGATIVE); URINE KETONE Negative (NEGATIVE); URINE NITRATE Negative (NEGATIVE); URINE PROTEIN(semi-quant) Negative (NEGATIVE); URINE RBC 0-2 /hpf (0-2); URINE UROBILINOGEN 0.2 E.U/dL (0.2-1.0)
[2023-11-19 18:27] LABS: TSH w REFLEX 1.617 uIU/mL (0.350-4.940)
[2023-11-19 18:35] LABS: TROPONIN-I 0.036 ng/mL (0.00-0.033)
[2023-11-19] MEDS ORDERED: Iohexol 300 - 100 ML VIAL IV ONE (19:02)
[2023-11-19] MEDS ORDERED: NS 74 ML IV ONE (19:03)
[2023-11-19] MEDS ORDERED: Bumetanide 1 MG/4 ML VIAL IV ONE (19:15)
[2023-11-19] MEDS ORDERED: PEPCID 20MG TAB20 MG PO (20:02)
[2023-11-19 20:08] VITALS: BP 141/111; PULSE 108
== END 2023-11-19 20:15 | disposition home or self-care (01) ==
LOC: COL.ER 16:52
PROVIDERS: Emergency Medicine
DX: I11.0 Hypertensive heart disease with heart failure (principal); I50.9 Heart failure, unspecified; D72.829 Elevated white blood cell count, unspecified; R79.89 Other specified abnormal findings of blood chemistry
CPT/HCPCS: Q9967

== ENCOUNTER 2023-11-29 11:53 | Emergency (ER) | payer OTHER ==
[~2023-11-29] VITALS: Ht 177.8 cm; Wt 83.2 kg
[~2023-11-29 11:53] MED LIST changes: +PEPCID 20MG TAB20 MG PO
[2023-11-29 11:56] VITALS: TEMP 98.1
[2023-11-29 14:20] VITALS: BP 109/77; PULSE 85
== END 2023-11-29 14:20 | disposition home or self-care (01) ==
LOC: COL.ER 11:53
DX: S61.412A Laceration without foreign body of left hand, initial encounter (principal); Z23 Encounter for immunization; W26.8XXA Contact with other sharp object(s), not elsewhere classified, initial encounter